=== PATIENT | male | born 1970 | race Caucasian/White ===

== ENCOUNTER 2023-08-29 13:36 | Outpatient (OUT) | payer OTHER, SELFPAY ==
--- NOTE | 2023-08-29 13:59 | XR_ITS ---
[place] [id number] Patient Name: DELL TRAVIS MRN: [id number] date: 1970 Sex: M Assigned Patient Location: RAD Current Patient Location: [facility] Accession/Order Number: [id number] Exam Date: 08/29/2023 14:03 Report Date: 08/29/2023 19:09 At the request of: KIMBERLEY ANDRES Procedure: XR knee RT 3V EXAM: XR knee RT 3V HISTORY: Pain In Right Knee M25.561 COMPARISON: None. TECHNIQUE: 3 views of the right knee were obtained. FINDINGS/IMPRESSION: 1. Enthesopathic changes at the insertion of the patellar tendon. 2. There is no evidence of acute fracture or subluxation. 3. Mild osteoarthritis. Electronically authenticated by: AAKASH NEWSOME Date: 08/29/2023 19:09
== END 2023-08-29 13:37 | disposition home or self-care (01) ==
PROVIDERS: PCP Nurse Practitioner Family; Visit Provider Nurse Practitioner Family
DX: M25.561 Pain in right knee (principal)
CPT/HCPCS: 73562

== ENCOUNTER 2024-01-29 11:01 | Emergency (ER) | payer OTHER, SELFPAY ==
--- OUTSIDE RECORDS SUMMARY | 2024-01-29 11:08 | XMS_ITS | CCD ---
Author Organization [facility] Care Team Providers Care Canteen Manager Name Role Phone SHANDRA RAMOS Attending Unavailable SHANDRA RAMOS Consulting Unavailable SHANDRA RAMOS Admitting Unavailable Shandra Mckinney MD Unavailable SHANDRA MCKINNEY Primary Care Physician Gunnar Concepcion Referring Unavailable Gunnar Concepcion Attending Gunnar Dillon Admitting Unavailable Medications Current Medications Medication Drug Class(es) Dates Sig (Normalized) Sig (Original) diclofenac sodium 75 mg delayed release oral tablet (1 source) Nonsteroidal Anti-inflammatory Drug take 1 tablet by mouth in the morning diclofenac (Voltaren) 75 MG EC tablet Take 75 mg by mouth in the morning and 75 mg before bedtime. 0 Active Problems Problem Classification Problem Date Documented Da te Episodic/Chronic Other screening for suspected conditions (not mental disorders or infectious disease) (1 source) Encounter for screening for malignant neoplasm of prostate; Translations: [ENC SCREEN MALIG NEOPLASM PROSTATE] Onset: 09-24-2020 Episodic Results Test Name Value Interpretation Reference Range Facil ity MRI Knee w/o Contrast Righto n 12-06-2023 MRI Knee w/o Contrast Right Exam Date/Time: 12/05/2023 19:59 EDT Reason for Exam: M23.91 [id number] Report IMPRESSION: Possible changes from prior partial medial meniscectomy, versus tear. Osteoarthritis as discussed. EXAMINATION: MRI Knee w/o Contrast Right HISTORY: Chronic right knee pain. History of previous surgery 10 years ago. Intermittent swelling laterally. No recent injury. TECHNIQUE: Routine non-contrast MRI of the knee RIGHT COMPARISON: None RESULT: MENISCI: Medial Meniscus: Majority of the body appears absent, which may be postsurgical from prior meniscectomy, otherwise represents tear. Lateral Meniscus: Intact LIGAMENTS: ACL, PCL, MCL, and LCL complex intact. CARTILAGE: Small area of full-thickness chondral loss involving the lateral patellar facet superiorly, associated subchondral cystic change. Subchondral edema within the medial compartment suspicious for full-thickness fissuring. Small osteophytes. TENDONS: Distal quadriceps intact. Patellar tendon intact. Popliteus intact. BONES AND MARROW: No evidence of fracture or bone marrow replacing process. MUSCLES: Muscle bulk and signal intensity are normal. JOINT FLUID AND SYNOVIUM: Small to moderate joint effusion. No synovitis. Trace Koenig's cyst. OTHER: Subcutaneous edema/bursitis anteriorly. Ordering Provider: Gunnar Concepcion FINAL REPORT Dictated: 12/06/2023 1:33 pm Xavier Duncan MD Signed (Electronic Signature): 12/06/2023 1:33 pm Signed by: Xavier Duncan MD Transcribed by: REJI Technologist: KAMRON Technical Comments None Normal [facility] Consent for Treatmenton 11-24 Consent for Treatment [id number] #1.00TIFF Normal [facility] RAD - MRI Screening Formon 0 12-05-2023 RAD - MRI Screening Form [id number]#1.00TIFF Normal [facility] Physician Orderon 12-02-2023 Physician Order [id number] #1.00TIFF Normal [facility] INSULINon 09-16-2020 Insulin 11.4 uIU/mL Normal 2.6-24.9 [facility] Comment on above: Performed By: #### I NSULIN #### [facility] [address] [place] [address] Nima Zari CBC AUTO DIFFon 09-15-2020 Basophils (Bld) [#/Vol] 0.1 103/ul Normal 0.0-0.1 [facility] Comment on above: Performed By: #### C BC #### [facility] [address] [place] [address] Nima Zari Basophils/100 WBC (Bld) 0.9 % Normal 0.2-2.0 [facility] Comment on above: Performed By: #### C BC #### [facility] [address] [place] [address] Nima Zari Eosinophils (Bld) [#/Vol] 0.2 103/ul Normal 0.0-0.7 [facility] Comment on above: Performed By: #### C BC #### [facility] [address] [place], [place] [id number] Nima Zari Eosinophils/100 WBC (Bld) 4.1 % Normal 0.9-7.0 [facility] Comment on above: Performed By: #### C BC #### [facility] [address] [place] [address] Nima Zari Erythrocyte distribution width (RBC) [Ratio] 14.2 % Normal 11.0-15.0 [facility] Comment on above: Performed By: #### C BC #### [facility] [address] [place] [address] Nima Zari Hematocrit (Bld) [Volume fraction] 43.9 % Normal 42.0-54.0 [facility] Comment on above: Performed By: #### C BC #### [facility] [address] [place], [place] [id number] Nima Zari Hemoglobin (Bld) [Mass/Vol] 14.1 g/dL Normal 14.0-18.0 [facility] Comment on above: Performed By: #### C BC #### [facility] [address] [place] [address] Nima Zari IG # 0.03 10e3/ul Normal 0.00-0.03 [facility] Comment on above: Performed By: #### C BC #### [facility] [address] [place] [address] Nima Zari IG % 0.5 % Normal 0.0-0.5 [facility] Comment on above: Performed By: #### C BC #### [facility] [address] [place], [place] [id number] Nima Zari Lymphocytes (Bld) [#/Vol] 1.6 103/ul Normal 1.2-3.8 [facility] Comment on above: Performed By: #### C BC #### [facility] [address] [id number] Nima Zari Lymphocytes/100 WBC (Bld) 27.9 % Normal 20.5-60.0 [facility] Comment on above: Performed By: #### C BC #### [facility] [address] [place], [place] [id number] Nimadanae Hameed MANUAL DIFF REQ NO Normal [facility] Comment on above: Performed By: #### C BC #### [facility] [address] [place] [id number] Nima Zari MCH (RBC) [Entitic mass] 30.9 pg Normal 25.9-34.0 [facility] Comment on above: Performed By: #### C BC #### [facility] [address] [place], [place] [id number] Nima Zari MCHC (RBC) [Mass/Vol] 32.1 g/dL Normal 29.9-35.2 [facility] Comment on above: Performed By: #### C BC #### [facility] [address] [place], [place] [id number] Nima Zari MCV (RBC) [Entitic vol] 96.3 fL Critically high 80.0-94.0 [facility] Comment on above: Performed By: #### C BC #### [facility] [address] [place], [place] [address] Nima Zari Monocytes (Bld) [#/Vol] 0.5 103/ul Normal 0.3-0.8 [facility] Comment on above: Performed By: #### C BC #### [facility] [address] [place], [place] [address] Nima Zari Monocytes/100 WBC (Bld) 8.3 % Normal 1.7-12.0 [facility] Comment on above: Performed By: #### C BC #### [facility] [address] [place], [place] [address] Nima Zari Neutrophils (Bld) [#/Vol] 3.4 103/ul Normal 1.4-6.5 [facility] Comment on above: Performed By: #### C BC #### [facility] [address] [place] [address] Nmia Zari Neutrophils/100 WBC (Bld) 58.3 % Normal 43.0-75.0 [facility] Comment on above: Performed By: #### C BC #### [facility] [address] [place], [place] [address] Nima Zari Platelet mean volume (Bld) [Entitic vol] 10.8 fL Normal 9.5-13.5 [facility] Comment on above: Performed By: #### C BC #### [facility] [address] [place], [place] [address] Nima Zari Platelets (Bld) [#/Vol] 245 103/ul Normal 150-450 [facility] Comment on above: Performed By: #### C BC #### [facility] [address] [place], [place] [address] Nima Zari RBC (Bld) [#/Vol] 4.56 106/ul Critically low 4.70-6.10 [facility] Comment on above: Performed By: #### C BC #### [facility] [address] [place], [place] [address] Nima Zari WBC (Bld) [#/Vol] 5.9 103/ul Normal 4.0-11.0 [facility] Comment on above: Performed By: #### C BC #### [facility] [address] [place], [place] [address] Nimadanae Hameed GLYCOHEMOGLOBIN A1Con 2019 Glucose [Mass/Vol] 117 mg/dL Normal [facility] Comment on above: Performed By: #### A 1C #### [facility] [address] [place], [place] [address] Nima Zari HbA1c (Bld) [Mass fraction] 5.7 % Normal <=6.0 [facility] Comment on above: Performed By: #### A 1C #### [facility] [address] [place], [place] [address] Nimadanae Hameed LIPID PROFILEon 09-15-2020 CHOL-HDL RATIO NORM SEE BELOW Normal [facility] Comment on above: Result Comment: 3.3 - 4.4 LOW RISK 4.4 - 7.1 AVERAGE RISK 7.1 - 11.0 MODERATE RISK >11.0 HIGH RISK Performed By: #### C MP, PSASC, LIPID #### [facility] [address] [place] [id number] Nima Zari Cholesterol [Mass/Vol] 157 mg/dL Normal <=200 [facility] Comment on above: Performed By: #### C MP, PSASC, LIPID #### [facility] [address] [place] [id number] Nima Zari Cholesterol in HDL [Mass/Vol] > or = 60 mg/dl - LOW CARDIOVASCULAR RISK <40 mg/dl - HIGH CARDIOVASCULAR RISK Normal [facility] Comment on above: Performed By: #### C MP, PSASC, LIPID #### [facility] [address] [phone] Nima Zari Cholesterol in HDL [Mass/Vol] 56 mg/dL Normal [facility] Comment on above: Performed By: #### C MP, PSASC, LIPID #### [facility] [address] [place] [address] Nima Zari Cholesterol in LDL [Mass/Vol] 96.6 mg/dL Normal [facility] Comment on above: Performed By: #### C MP, PSASC, LIPID #### [facility] [address] [place], [place] [address] Nima Zari Cholesterol in LDL [Mass/Vol] SEE BELOW Normal [facility] Comment on above: Result Comment: <100 mg/dl OPTIMAL 100 - 129 mg/dl NEAR OR ABOVE OPTIMAL 130 - 159 mg/dl BORDERLINE HIGH 160 - 189 mg/dl HIGH >190 mg/dl VERY HIGH Performed By: #### C MP, PSASC, LIPID #### [facility] [address] [place], [place] [address] Nima Zari Cholesterol.total/Cho lesterol in HDL [Mass ratio] 2.8 {ratio} Normal [facility] Comment on above: Performed By: #### C MP, PSASC, LIPID #### [facility] [address] [place] [phone] Nima Zari Triglyceride [Mass/Vol] 22 mg/dL Normal <=150 [facility] Comment on above: Performed By: #### C MP, PSASC, LIPID #### [facility] [address] [place] [phone] Nima Zari VLDL CALC 4.4 mg/dL Normal [facility] Comment on above: Performed By: #### C MP, PSASC, LIPID #### [facility] [address] [place] [phone] Nimadanae Tinsleyen PROF 14(COMP METB)on 020 Albumin [Mass/Vol] 3.6 g/dL Normal 3.5-5.0 [facility] Comment on above: Performed By: #### C MP, PSASC, LIPID #### [facility] [address] [place] [phone] Nima Zari Albumin/Globulin [Mass ratio] 1.2 {ratio} Normal [facility] Comment on above: Performed By: #### C MP, PSASC, LIPID #### [facility] [address] [place] [phone] Nima Zari ALP [Catalytic activity/Vol] 43 U/L Normal 38-126 [facility] Comment on above: Performed By: #### C MP, PSASC, LIPID #### [facility] [address] [place], [place] [address] Nima Zari ALT [Catalytic activity/Vol] 30 U/L Normal 21-72 [facility] Comment on above: Performed By: #### C MP, PSASC, LIPID #### [facility] [address] [place] [phone] Nima Zari Anion gap [Moles/Vol] 11.1 mmol/L Normal [facility] Comment on above: Performed By: #### C MP, PSASC, LIPID #### [facility] [address] [place] [phone] Nima Zari AST [Catalytic activity/Vol] 19 U/L Normal 17-59 [facility] Comment on above: Performed By: #### C MP, PSASC, LIPID #### [facility] [address] [place] [address] Nima Zari Bilirubin Ql (U) 0.4 mg/dL Normal 0.2-1.3 [facility] Comment on above: Performed By: #### C MP, PSASC, LIPID #### [facility] [address] [place] [address] Nima Zari Calcium [Mass/Vol] 8.4 mg/dL Normal 8.4-10.2 [facility] Comment on above: Performed By: #### C MP, PSASC, LIPID #### [facility] [address] [place] [address] Nima Zari Chloride [Moles/Vol] 110 mmol/L Critically high 98-107 [facility] Comment on above: Performed By: #### C MP, PSASC, LIPID #### [facility] [address] [place] [address] Nima Zari CO2 [Moles/Vol] 25.5 mmol/L Normal 22.0-30.0 [facility] Comment on above: Performed By: #### C MP, PSASC, LIPID #### [facility] [address] [place] [address] Nima Zari Creatinine [Mass/Vol] 1.19 mg/dL Normal 0.66-1.25 [facility] Comment on above: Performed By: #### C MP, PSASC, LIPID #### [facility] [address] [place] [address] Nima Zari EGFR-AF CYPRIOT >60 Normal >=60 [facility] Comment on above: Performed By: #### C MP, PSASC, LIPID #### [facility] [address] [place] [address] Nima Zari EGFR-NON AF CYPRIOT >60 Normal >=60 [facility] Comment on above: Performed By: #### C MP, PSASC, LIPID #### [facility] [address] [place] [address] Nima Zari Globulin (S) [Mass/Vol] 2.9 g/dL Normal [facility] Comment on above: Performed By: #### C MP, PSASC, LIPID #### [facility] [address] [place] [address] Nima Zari Glucose [Mass/Vol] 118 mg/dL Critically high 74-106 T [facility] Comment on above: Performed By: #### C MP, PSASC, LIPID #### [facility] [address] [place] [address] Nima Azri Potassium [Moles/Vol] 4.6 mmol/L Normal 3.4-5.0 [facility] Comment on above: Performed By: #### C MP, PSASC, LIPID #### [facility] [address] [place] [address] Nima Zari Protein [Mass/Vol] 6.5 g/dL Normal 6.1-8.2 [facility] Comment on above: Performed By: #### C MP, PSASC, LIPID #### [facility] [address] [place] [address] Nima Zari Sodium [Moles/Vol] 142 mmol/L Normal 137-145 [facility] Comment on above: Performed By: #### C MP, PSASC, LIPID #### [facility] [address] [place] [address] Nima Zari Urea nitrogen [Mass/Vol] 12.0 mg/dL Normal 9.0-20.0 [facility] Comment on above: Performed By: #### C MP, PSASC, LIPID #### [facility] [address] [place] [address] Nima Zari Urea nitrogen/Creatinine [Mass ratio] 10.1 mg/mg Normal [facility] Comment on above: Performed By: #### C MP, PSASC, LIPID #### [facility] [address] [place], [place] [address] Nima Zari Encounters Encounter Date Encounter Type Care Provider Facility Start: 12-05-2023 End: 12-06-2023 ambulatory Gunnar Concepcion Facility:[facility] Start: 12-05-2023 End: 12-05-2023 Patient encounter procedure Gunnar Concepcion [facility] Start: 11-07-2023 Bamboo flowsheet Shandra main PT Work Phone: [facility] Start: 11-07-2023 Bamboo flowsheet Shandra main PT Work Phone: [facility] Start: 09-24-2020 Encounter for genera l adult medical examination without abnormal findings SHANDRA RAMOS [facility] Start: 09-15-2020 End: 09-16-2020 Patient encounter procedure SHANDRA RAMOS Facility:[facility] Encounter for genera l adult medical examination without abnormal findings SHANDRA RAMOS [facility] Procedures Date Procedure Procedure Detail Performing Clinician Start: 09-15-2020 [object Object] SHANDRA RAMOS Comment on above: Performed By: #### C MP, PSASC, LIPID #### [facility] [address] [address] Nima Hameed Plan of Treatment Date Care Activity Detail Author Start: 11-07-2023 End: 11-07-2023 ambulatory 11/07/2023 3:30 PM EST Evaluation [facility] [address] [place] [id number] Shandra Liu, PT [address] [place] [address] Internal derangement of right knee; Right knee pain, unspecified chronicity [facility] Comment on above: Internal derangement of right knee; Right knee pain, unspecified chronicity Payers Date Payer Category Payer Medicaid [employer] [place] [employer] [id number] 2017-Present [address] [place] [address] [id number] 1970 Unknown [id number] 1970 Unknown [id number] 1959 Unknown [id number] Social History Date Type Detail Facility Start: 10-10-2023 Tobacco smoking stat [facility] Never smoked tobacco [facility] Start: 10-10-2023 Tobacco use and exposure Smokeless tobacco non-user [facility] Start: 10-10-2023 Alcohol intake Current drinke r of alcohol (finding) [facility] Start: 10-10-2023 Alcohol intake [facility] Start: 10-10-2023 Tobacco use panel [facility] Start: 1970 Sex Assigned At Not on file [facility] Tobacco smoking status No Smokin g Status Entered [facility] Evaluation + Plan note Note Date & Type Note Facility Evaluation + Plan note No data available for this section [facility] Hospital Discharge instructions Note Date & Type Note Facility Hospital Discharge instructions No data available for this section [facility] Progress note Note Date & Type Note Facility Progress note No data available for this section [facility] Summary Purpose Family History No Family History Records Found No data available for this section No Family History Records Found Advance Directives No Advanced Directives Records FoundNo Advanced Directives Records Found Additional Source Comments (unrecognized sect ion and content) No Status Records FoundNo Status Records Found INFORMATION SOURCE (unrecogn ized section and content) DATE CREATED AUTHOR 09/25/2020 [facility] DATE CREATED AUTHOR AUTHOR'S ORGANIZ ATION 12/06/2023 [facility] Care Teams (unrecognized sec tion and content) Canteen Manager Relationship Specialty Start Date End Date Shandra Mckinney MD [address] [place] [id number] Referring Physician Family Medicine 10/10/23 FOR RECORDS PERTAINING TO PATIENTS WHO ARE OR HAVE BEEN ENROLLED IN A CHEMICAL DEPENDENCY/SUBSTANCEABUSE PROGRAM, SOME INFORMATION MAY BE OMITTED. This clinical summary was aggregated from multiple sources. Caution should be exercised in using it in the provision of clinical care. This summary normalizes information from multiple sources, and as a consequence, information in this document may materially change the coding, format and clinical context of patient data. In addition, data may be omitted in some cases. CLINICAL DECISIONS SHOULD BE BASED ON THE PRIMARY CLINICAL RECORDS. [facility]. provides no warranty or guarantee of the accuracy or completeness of information in this document.
[2024-01-29 11:18] VITALS: BP 122/84; PULSE 73; TEMP 36.8; O2SAT 97; BMI 36.3
--- NOTE | 2024-01-29 11:31 | XR_ITS ---
The [address] [address] Patient Name: DELL TRAVIS MRN: [id number] date: 1970 Sex: M Assigned Patient Location: ER Current Patient Location: ER Accession/Order Number: [id number] Exam Date: 01/29/2024 11:47 Report Date: 01/29/2024 12:08 At the request of: JEFF MARINELLI Procedure: XR chest 2V EXAM: Chest x-ray HISTORY: . cough . COMPARISON: None. TECHNIQUE: Frontal and lateral chest FINDINGS: Heart and vascularity are unremarkable. Lungs are free of focal infiltrates. Spondylosis of the spine is noted. XR/XR chest 2V IMPRESSION: No acute heart or lung disease identified. Electronically authenticated by: LEROY ULRICH Date: 01/29/2024 12:08
--- NOTE | 2024-01-29 12:23 | ED_ITS ---
HPI - URI/Sore Throat General Chief Complaint: Upper Respiratory Infection Stated Complaint: COUGHING UP BLOOD Time Seen by Provider: 01/29/24 12:13 Source: patient Limitations: no limitations History of Present Illness HPI Narrative: 53-year-old male presents to the emergency department for coughing up some blood. He has had a cough for several days, perhaps a week. He has been coughing up small streaks of blood. Family encouraged him to come in to get checked. No fever or massive hemoptysis. He does not complain of chest pain. He is a non-smoker, never smoked. Related Data Home Medications ?Medication ?Instructions ?Recorded ?Confirmed aspirin 325 mg tablet,delayed 325 mg PO DAILY 01/29/24 01/29/24 release Previous Rx's ?Medication ?Instructions ?Recorded azithromycin 250 mg tablet See Rx Instructions PO .COMPLEX #6 01/29/24 (Zithromax Z-Thuan) tabs benzonatate 100 mg capsule 100 mg PO TID PRN cough #20 caps 01/29/24 Allergies Allergy/AdvReac Type Severity Reaction Status Date / Time No Known Drug Allergies Allergy Verified 01/29/24 11:17 Review of Systems ROS Narrative A ten point review of systems is negative except as noted above. Exam Narrative Exam Narrative: Nurses note and vital signs reviewed and patient is not hypoxic. General: The patient appears well and in no apparent distress. Patient is resting comfortably on cart. Skin: Warm, dry, no pallor noted. There is no rash noted. Head: Normocephalic, atraumatic Eye: Normal conjunctiva, no drainage Ears, Nose, Mouth, and Throat: oral mucosa is moist. Nares patent. Cardiovascular: Regular Rate and Rhythm Respiratory: Patient is in no distress, no accessory muscle use, lungs are sharda r to auscultation, no wheezing, rales or rhonchi Back: non-tender, no CVA tenderness bilaterally to percussion. GI: Normal bowel sounds, no tenderness to palpation, no masses appreciated. No rebound, guarding, or rigidity noted. Musculoskeletal: No peripheral edema Neurological: A&O, normal speech Psychiatric: Cooperative Constitutional Vital Signs, click to edit/add: Last Vital Signs Temp 98.2 F 01/29/24 11:18 Pulse 73 01/29/24 11:18 Resp 18 01/29/24 11:18 BP 122/84 01/29/24 11:18 Pulse Ox 97 01/29/24 11:18 O2 Del Method Room Air 01/29/24 11:18 Course Vital Signs Vital signs: Vital Signs Temperature 98.2 F 01/29/24 11:18 Pulse Rate 73 01/29/24 11:18 Respiratory Rate 18 01/29/24 11:18 Blood Pressure 122/84 01/29/24 11:18 Pulse Oximetry 97 01/29/24 11:18 Oxygen Delivery Method Room Air 01/29/24 11:18 Temperature 98.2 F 01/29/24 11:18 Pulse Rate 73 01/29/24 11:18 Respiratory Rate 18 01/29/24 11:18 Blood Pressure 122/84 01/29/24 11:18 Pulse Oximetry 97 01/29/24 11:18 Oxygen Delivery Method Room Air 01/29/24 11:18 MDM - URI/Sore Throat MDM Narrative Medical decision making narrative: Chest x-ray is negative and he is prescribed Tessalon and Zithromax. Treatment diagnosis and follow-up were discussed with the patient. Differential Diagnosis Differential diagnosis: Likely upper respiratory infection and other (Lung mass, bronchitis, pneumonia) Imaging Data Chest x-ray: Radiologist's impression: ITS Impressions Chest X-Ray 01/29/24 11:31 IMPRESSION: No acute heart or lung disease identified. Electronically authenticated by: LEROY ULRICH Date: 01/29/2024 12:08 Discharge Plan Discharge Stand Alone Forms: Portal Instructions Chief Complaint: Upper Respiratory Infection Clinical Impression: Hemoptysis Patient Disposition: Home, Self-Care Time of Disposition Decision: 12:19 Condition: Good Mode of Transportation: Private Vehicle Prescriptions / Home Meds: New azithromycin [Zithromax Z-Thuan] 250 mg tablet See Rx Instructions .ROUTE .COMPLEX Qty: 6 0RF Rx Instructions: For 250 mg dose pack: take 500 mg today (day 1), then 250 mg for 4 days (days 2-5) benzonatate 100 mg capsule 100 mg PO TID PRN (Reason: cough) Qty: 20 0RF No Action aspirin 325 mg tablet,delayed release (DR/EC) 325 mg PO DAILY Print Language: Greek Instructions: Coughing Up Blood (Hemoptysis) (ED) Referrals: KIMBERLEY ANDRES [Primary Care Provider] - 1 week
== END 2024-01-29 12:29 | disposition home or self-care (01) ==
PROVIDERS: Emergency Provider Emergency Medicine; PCP Nurse Practitioner Family
DX: R04.2 Hemoptysis (principal); Z79.82 Long term (current) use of aspirin
CPT/HCPCS: 71046; 99283

== ENCOUNTER 2024-09-17 09:33 | Outpatient (OUT) | payer OTHER, SELFPAY ==
[2024-09-17 09:51] LABS: Basophils Absolute Auto 0.1 10^3/uL (0.0-0.1); Basophils Percent Auto 1.1 % (0.2-2.0); Eosinophils Absolute Auto 0.2 10^3/uL (0.0-0.7); Eosinophils Percent Auto 3.8 % (0.9-7.0); Hematocrit 46.3 % (42.0-54.0); Hemoglobin 14.7 g/dL (14.0-18.0); Immature Granulocytes Abs Auto 0.02 10^3/uL (0.00-0.03); Immature Granulocytes Pct Auto 0.3 % (0.0-0.5); Lymphocytes Absolute Auto 1.8 10^3/uL (1.2-3.8); Lymphocytes Percent Auto 27.3 % (20.5-60.0); Mean Corpuscular HGB Conc 31.7 g/dL (29.9-35.2); Mean Corpuscular Hemoglobin 30.8 pg (25.9-34.0); Mean Corpuscular Volume 97.1 fL (80.0-94.0); Mean Platelet Volume 10.6 fL (9.5-13.5); Monocytes Absolute Auto 0.5 10^3/uL (0.3-0.8); Monocytes Percent Auto 7.8 % (1.7-12.0); Neutrophils Absolute Auto 3.8 10^3/uL (1.4-6.5); Neutrophils Percent Auto 59.7 % (43.0-75.0); Platelet Count 274 10^3/uL (150-450); Red Blood Count 4.77 10^6/uL (4.70-6.10); White Blood Count 6.4 10^3/uL (4.0-11.0)
[2024-09-17 10:01] LABS: Estimated Average Glucose 117 mg/dL; Glycohemoglobin A1C 5.7 % (4.5-6.2)
[2024-09-17 10:30] LABS: Prostate Specific Antigen Scrn 0.15 ng/mL (<=4.00)
[2024-09-17 10:32] LABS: Alanine Aminotransferase 27 U/L (16-63); Albumin Globulin Ratio 1.2; Albumin Level 3.8 g/dL (3.4-5.0); Alkaline Phosphatase 66 U/L (46-116); Aspartate Amino Transferase 15 U/L (15-37); BUN Creatinine Ratio 8.5; Bilirubin Total 0.4 mg/dL (0.2-1.0); Carbon Dioxide 28.6 mmol/L (21.0-32.0); Chloride 106 mmol/L (98-107); Chol HDL Ratio 2.7; Cholesterol 175 mg/dL (<=200); Estimated GFR (African America >60 (>=60 mL/min/1.73m^2); Estimated GFR (Non-African Ame 58 (>=60 mL/min/1.73m^2); Free T3 2.67 pg/mL (2.18-3.98); Globulin 3.3 g/dL; Glucose 117 mg/dL (74-106); HDL Cholesterol 66 mg/dL (40-60); Potassium 4.6 mmol/L (3.5-5.1); Sodium 143 mmol/L (136-145); Thyroid Stimulating Hormone 1.469 uIU/mL (0.358-3.740); Total Protein 7.1 g/dL (6.4-8.2); Triglycerides 48 mg/dL (<=150); Uric Acid 5.6 mg/dL (3.5-7.2); VLDL CHOLESTEROL 9.6 mg/dL
[2024-09-18 07:09] LABS: Insulin 15.3 uIU/mL (2.6-24.9)
== END 2024-09-17 09:34 | disposition home or self-care (01) ==
PROVIDERS: PCP Nurse Practitioner Family; Visit Provider Nurse Practitioner Family
DX: Z00.00 Encounter for general adult medical examination without abnormal findings (principal)
CPT/HCPCS: 36415; 80053; 80061; 83036; 83525; 84436; 84443; 84481; 84550; 85025; G0103

== ENCOUNTER 2025-05-28 06:51 | Outpatient (OUT) | payer OTHER, SELFPAY ==
--- NOTE | 2025-05-28 | US_ITS ---
The [address] [address] Patient Name: DELL TRAVIS MRN: [id number] date: 1970 Sex: M Assigned Patient Location: US Current Patient Location: US Accession/Order Number: [id number] Exam Date: 05/28/2025 07:08 Report Date: 05/28/2025 09:24 At the request of: KIMBERLEY ANDRES Procedure: US right upper quadrant LIMITED RIGHT UPPER QUADRANT ABDOMINAL ULTRASOUND CLINICAL HISTORY: R10.11 Right upper quadrant abdominal pain COMPARISON: None The gallbladder is physiologically distended. There is a large stone toward the gallbladder neck measuring over 3 cm in size. No wall thickening or pericholecystic fluid is noted. No intra- or extrahepatic biliary dilatation is evident. The common duct measures 3 - 4 mm. The liver is slightly echogenic with respect to the right kidney and fatty infiltration is not completely excluded. No intrahepatic masses are seen. There is appropriate hepatopetal flow within the main portal vein. The visualized portions of the pancreas show no significant sonographic abnormality. Cursory evaluation of the right kidney reveals no hydronephrosis or fluid within Suarez's pouch. US/US right upper quadrant IMPRESSION: CHOLELITHIASIS. POSSIBLE FATTY LIVER. Impression dictated by: Zari Morton M.D. 05/28/2025 9:24 AM Dictation Location: [place] [address] Electronically authenticated by: [id number] Y Date: 05/28/2025 09:24
--- OUTSIDE RECORDS SUMMARY | 2025-05-28 06:54 | XMS_ITS | CCD ---
Author Organization [facility] Care Team Providers Care Tool Coordinator Name Role Phone SHANDRA RAMOS Attending Unavailable SHANDRA RAMOS Consulting Unavailable SHANDRA RAMOS Admitting Unavailable Shandra Mckinney MD Unavailable SHANDRA MCKINNEY Primary Care Physician Gunnar Concepcion Referring Unavailable Gunnar Concepcion Attending Unavailable Gunnar Concepcion Admitting Unavailable Medications Current Medications Medication Drug [...] REJI Technologist: KAMRON Technical Comments None Normal [facility] Consent for Treatmenton 11-24 Consent for Treatment [id number] #1.00TIFF Normal [facility] RAD - MRI Screening Formon 0 12-05-2023 RAD - MRI Screening Form [id number]#1.00TIFF Normal [facility] Physician Orderon 12-02-2023 Physician Order [id number] #1.00TIFF Normal [facility] INSULINon 09-16-2020 Insulin 11.4 uIU/mL Normal 2.6-24.9 [facility] Comment on above: Performed By: #### I NSULIN #### [facility] [address] [place] [address] Nima Zari CBC AUTO DIFFon 09-15-2020 Basophils (Bld) [#/Vol] 0.1 103/ul Normal 0.0-0.1 [facility] Comment on above: Performed By: #### C BC #### [facility] [address] [place] [address] Nima Zari Basophils/100 WBC (Bld) 0.9 % Normal 0.2-2.0 [facility] Comment on above: Performed By: #### C BC #### [facility] [address] [id number] Nima Zari Eosinophils (Bld) [#/Vol] 0.2 103/ul Normal 0.0-0.7 [facility] Comment on above: Performed By: #### C BC #### [facility] [address] [place], [place] [id number] Nima Zari Eosinophils/100 WBC (Bld) 4.1 % Normal 0.9-7.0 [facility] Comment on above: Performed By: #### C BC #### [facility] [address] [place], [place] [id number] Nima Zari Erythrocyte distribution width (RBC) [Ratio] 14.2 % Normal 11.0-15.0 [facility] Comment on above: Performed By: #### C BC #### [facility] [address] [place] [address] Nima Zari Hematocrit (Bld) [Volume fraction] 43.9 % Normal 42.0-54.0 [facility] Comment on above: Performed By: #### C BC #### [facility] [address] [place], [place] [id number] Nima Zari Hemoglobin (Bld) [Mass/Vol] 14.1 g/dL Normal 14.0-18.0 [facility] Comment on above: Performed By: #### C BC #### [facility] [address] [place], [place] [address] Nima Zari IG # 0.03 10e3/ul Normal 0.00-0.03 [facility] Comment on above: Performed By: #### C BC #### [facility] [address] [place], [place] [address] Nima Zari IG % 0.5 % Normal 0.0-0.5 [facility] Comment on above: Performed By: #### C BC #### [facility] [address] [place], [place] [id number] Nima Zari Lymphocytes (Bld) [#/Vol] 1.6 103/ul Normal 1.2-3.8 [facility] Comment on above: Performed By: #### C BC #### [facility] [address] [id number] Nima Zari Lymphocytes/100 WBC (Bld) 27.9 % Normal 20.5-60.0 [facility] Comment on above: Performed By: #### C BC #### [facility] [address] [id number] Nima Zari MANUAL DIFF REQ NO Normal [facility] Comment on above: Performed By: #### C BC #### [facility] [address] [id number] Nima Zari MCH (RBC) [Entitic mass] 30.9 pg Normal 25.9-34.0 [facility] Comment on above: Performed By: #### C BC #### [facility] [address] [place], [place] [id number] Nima Zari MCHC (RBC) [Mass/Vol] 32.1 g/dL Normal 29.9-35.2 [facility] Comment on above: Performed By: #### C BC #### [facility] [address] [place], [place] [address] Nima Zari MCV (RBC) [Entitic vol] 96.3 fL Critically high 80.0-94.0 [facility] Comment on above: Performed By: #### C BC #### [facility] [address] [place], [place] [id number] Nima Zari Monocytes (Bld) [#/Vol] 0.5 103/ul Normal 0.3-0.8 [facility] Comment on above: Performed By: #### C BC #### [facility] [address] [place], [place] [address] Nima Zari Monocytes/100 WBC (Bld) 8.3 % Normal 1.7-12.0 [facility] Comment on above: Performed By: #### C BC #### [facility] [address] [place], [place] [id number] Nima Zari Neutrophils (Bld) [#/Vol] 3.4 103/ul Normal 1.4-6.5 [facility] Comment on above: Performed By: #### C BC #### [facility] [address] [place], [place] [address] Nima Zari Neutrophils/100 WBC (Bld) 58.3 % Normal 43.0-75.0 [facility] Comment on above: Performed By: #### C BC #### [facility] [address] [place], [place] [address] Nima Zari Platelet mean volume (Bld) [Entitic vol] 10.8 fL Normal 9.5-13.5 [facility] Comment on above: Performed By: #### C BC #### [facility] [address] [place], [place] [address] Nima Zari Platelets (Bld) [#/Vol] 245 103/ul Normal 150-450 [facility] Comment on above: Performed By: #### C BC #### [facility] [address] [place], [place] [address] Nima Zari RBC (Bld) [#/Vol] 4.56 106/ul Critically low 4.70-6.10 [facility] Comment on above: Performed By: #### C BC #### [facility] [address] [place], [place] [address] Nima Azri WBC (Bld) [#/Vol] 5.9 103/ul Normal 4.0-11.0 [facility] Comment on above: Performed By: #### C BC #### [facility] [address] [place], [place] [address] Nima Zari GLYCOHEMOGLOBIN A1Con 2019 Glucose [Mass/Vol] 117 mg/dL Normal [facility] Comment on above: Performed By: #### A 1C #### [facility] [address] [place], [place] [address] Nima Zari HbA1c (Bld) [Mass fraction] 5.7 % Normal <=6.0 [facility] Comment on above: Performed By: #### A 1C #### [facility] [address] [place], [place] [address] Nima Zari LIPID PROFILEon 09-15-2020 CHOL-HDL RATIO NORM SEE BELOW Normal [facility] Comment on above: Result Comment: 3.3 - 4.4 LOW RISK 4.4 - 7.1 AVERAGE RISK 7.1 - 11.0 MODERATE RISK >11.0 HIGH RISK Performed By: #### C MP PSASC, LIPID #### [facility] [address] [place], [place] [address] Nima Zari Cholesterol [Mass/Vol] 157 mg/dL Normal <=200 [facility] Comment on above: Performed By: #### C MP, PSASC, LIPID #### [facility] [address] [place], [place] [address] Nima Zari Cholesterol in HDL [Mass/Vol] > or = 60 mg/dl - LOW CARDIOVASCULAR RISK <40 mg/dl - HIGH CARDIOVASCULAR RISK Normal [facility] Comment on above: Performed By: #### C MP, PSASC, LIPID #### [facility] [address] [place], [place] [address] Nima Zari Cholesterol in HDL [Mass/Vol] 56 mg/dL Normal [facility] Comment on above: Performed By: #### C MP, PSASC, LIPID #### [facility] [address] [place], [place] [address] Nima Zari Cholesterol in LDL [Mass/Vol] 96.6 mg/dL Normal [facility] Comment on above: Performed By: #### C MP PSASC, LIPID #### [facility] [address] [place], [place] [address] Nima Zari Cholesterol in LDL [Mass/Vol] SEE BELOW Normal [facility] Comment on above: Result Comment: <100 mg/dl OPTIMAL 100 - 129 mg/dl NEAR OR ABOVE OPTIMAL 130 - 159 mg/dl BORDERLINE HIGH 160 - 189 mg/dl HIGH >190 mg/dl VERY HIGH Performed By: #### C MP, PSASC, LIPID #### [facility] [address] [place], [place] [address] Nima Zari Cholesterol.total/Cho lesterol in HDL [Mass ratio] 2.8 {ratio} Normal [facility] Comment on above: Performed By: #### C MP, PSASC, LIPID #### [facility] [address] [place], [place] [address] Nima Zari Triglyceride [Mass/Vol] 22 mg/dL Normal <=150 [facility] Comment on above: Performed By: #### C MP, PSASC, LIPID #### [facility] [address] [id number] Nima Zari VLDL CALC 4.4 mg/dL Normal [facility] Comment on above: Performed By: #### C MP, PSASC, LIPID #### [facility] [address] [id number] Nima Zari PROF 14(COMP METB)on 020 Albumin [Mass/Vol] 3.6 g/dL Normal 3.5-5.0 [facility] Comment on above: Performed By: #### C MP, PSASC, LIPID #### [facility] [address] [place] [address] Nima Zari Albumin/Globulin [Mass ratio] 1.2 {ratio} Normal [facility] Comment on above: Performed By: #### C MP, PSASC, LIPID #### [facility] [address] [place] [address] Nima Zari ALP [Catalytic activity/Vol] 43 U/L Normal 38-126 [facility] Comment on above: Performed By: #### C MP, PSASC, LIPID #### [facility] [address] [place] [address] Nima Zari ALT [Catalytic activity/Vol] 30 U/L Normal 21-72 [facility] Comment on above: Performed By: #### C MP, PSASC, LIPID #### [facility] [address] [id number] Nima Zari Anion gap [Moles/Vol] 11.1 mmol/L Normal [facility] Comment on above: Performed By: #### C MP, PSASC, LIPID #### [facility] [address] [place] [address] Nima Zari AST [Catalytic activity/Vol] 19 U/L Normal 17-59 [facility] Comment on above: Performed By: #### C MP, PSASC, LIPID #### [facility] [address] [place], [place] [address] Nima Zari Bilirubin Ql (U) 0.4 mg/dL Normal 0.2-1.3 [facility] Comment on above: Performed By: #### C MP, PSASC, LIPID #### [facility] [address] [place] [address] Nima Zari Calcium [Mass/Vol] 8.4 mg/dL Normal 8.4-10.2 [facility] Comment on above: Performed By: #### C MP, PSASC, LIPID #### [facility] [address] [place] [address] Nima Zari Chloride [Moles/Vol] 110 mmol/L Critically high 98-107 [facility] Comment on above: Performed By: #### C MP, PSASC, LIPID #### [facility] [address] [place] [address] Nima Zari CO2 [Moles/Vol] 25.5 mmol/L Normal 22.0-30.0 [facility] Comment on above: Performed By: #### C MP, PSASC, LIPID #### [facility] [address] [place] [address] Nima Zari Creatinine [Mass/Vol] 1.19 mg/dL Normal 0.66-1.25 [facility] Comment on above: Performed By: #### C MP, PSASC, LIPID #### [facility] [address] [place] [address] Nima Zari EGFR-AF DUTCH >60 Normal >=60 [facility] Comment on above: Performed By: #### C MP, PSASC, LIPID #### [facility] [address] [place] [address] Nima Zari EGFR-NON AF DUTCH >60 Normal >=60 [facility] Comment on above: Performed By: #### C MP, PSASC, LIPID #### [facility] [address] [place] [address] Nima Zari Globulin (S) [Mass/Vol] 2.9 g/dL Normal [facility] Comment on above: Performed By: #### C MP, PSASC, LIPID #### [facility] [address] [place] [address] Nima Zari Glucose [Mass/Vol] 118 mg/dL Critically high 74-106 [facility] Comment on above: Performed By: #### C MP, PSASC, LIPID #### [facility] [address] [address] Nima Zari Potassium [Moles/Vol] 4.6 mmol/L Normal 3.4-5.0 [facility] Comment on above: Performed By: #### C MP, PSASC, LIPID #### [facility] [address] [address] Nima Zari Protein [Mass/Vol] 6.5 g/dL Normal 6.1-8.2 [facility] Comment on above: Performed By: #### C MP, PSASC, LIPID #### [facility] [address] [address] Nima Zari Sodium [Moles/Vol] 142 mmol/L Normal 137-145 [facility] Comment on above: Performed By: #### C MP, PSASC, LIPID #### [facility] [address] [place] [address] Nima Zari Urea nitrogen [Mass/Vol] 12.0 mg/dL Normal 9.0-20.0 [facility] Comment on above: Performed By: #### C MP, PSASC, LIPID #### [facility] [address] [address] Nima Zari Urea nitrogen/Creatinine [Mass ratio] 10.1 mg/mg Normal [facility] Comment on above: Performed By: #### C MP, PSASC, LIPID #### [facility] [address] [place], [place] [address] Nima Zari Encounters Encounter Date Encounter Type Care Provider Facility Start: 12-05-2023 End: 12-06-2023 ambulatory Gunnar Concepcion Facility:[facility] Start: 12-05-2023 End: 12-05-2023 Patient encounter procedure Gunnar Concepcion [facility] Start: 11-07-2023 [place] flowsheet Shandra main PT Work Phone: [facility] Start: 11-07-2023 [place] flowsheet Shandra main PT Work Phone: [facility] Start: 09-24-2020 Encounter for genera l adult medical examination without abnormal findings SHANDRA RAMOS [facility] Start: 09-15-2020 End: 09-16-2020 Patient encounter procedure SHANDRA RAMOS Facility:[facility] Encounter for genera l adult medical examination without abnormal findings SHANDRA RAMOS [facility] Procedures Date Procedure Procedure Detail Performing Clinician Start: 09-15-2020 [object Object] SHANDRA RAMOS Comment on above: Performed By: #### C MP, PSASC, LIPID #### [facility] [address] [address] Nima Zari Plan of Treatment Date Care Activity Detail Author Start: 11-07-2023 End: 11-07-2023 ambulatory 11/07/2023 3:30 PM EST Evaluation [facility] [address] [place] [id number] Shandra Liu, PT [address] [place] [address] Internal derangement of right knee; Right knee pain, unspecified chronicity [facility] Comment on above: Internal derangement of right knee; Right knee pain, unspecified chronicity Payers Date Payer Category Payer Medicaid [employer] [place] [employer] [id number] 2017-Present [address] [place] [address] [id number] 1970 Unknown [id number] 1970 Unknown [id number] 1959 Unknown [id number] Social History Date Type Detail Facility Start: 10-10-2023 Tobacco smoking stat us NHIS Never smoked tobacco [facility] Start: 10-10-2023 Tobacco use and exposure Smokeless tobacco non-user [facility] Start: 10-10-2023 Alcohol intake Current drinke r of alcohol (finding) [facility] Start: 10-10-2023 Alcohol intake [facility] Start: 10-10-2023 Tobacco use panel [facility] Start: 1970 Sex Assigned At Not on file [facility] Tobacco smoking status No Smokin g Status Entered [facility] Evaluation + Plan note Note Date & Type Note Facility Evaluation + Plan note No data available for this section [facility] Hospital Discharge instructions Note Date & Type Note Facility Hospital Discharge instructions No data available for this section [facility] Progress note Note Date & Type Note Facility Progress note No data available for this section [facility] Summary Purpose Family History No Family History Records Found No data available for this section No Family History Records Found Advance Directives No Advanced Directives Records FoundNo Advanced Directives Records Found Additional Source Comments (unrecognized sect ion and content) No Status Records FoundNo Status Records Found INFORMATION SOURCE (unrecogn ized section and content) DATE CREATED AUTHOR 09/25/2020 [facility] DATE CREATED AUTHOR AUTHOR'S ORGANIZ ATION 12/06/2023 [facility] Care Teams (unrecognized sec tion and content) Tool Coordinator Relationship Specialty Start Date End Date Shandra Mckinney MD [address] [place] [id number] Referring Physician Family Medicine 10/10/23 FOR RECORDS [...] BE BASED ON THE PRIMARY CLINICAL RECORDS. [facility] [employer] [facility]. provides no warranty or guarantee of the accuracy or completeness of information in this document.
== END 2025-05-28 06:52 | disposition home or self-care (01) ==
LOC: US 06:51
PROVIDERS: PCP Nurse Practitioner Family; Visit Provider Nurse Practitioner Family
DX: R10.11 Right upper quadrant pain (principal)
CPT/HCPCS: 76705

== ENCOUNTER 2025-07-08 08:40 | Outpatient (OUT) | payer OTHER, SELFPAY ==
--- OUTSIDE RECORDS SUMMARY | 2025-07-08 08:44 | XMS_ITS | CCD ---
Author Organization [facility] Care Team Providers Care Street Sweeper Name Role Phone SHANDRA RAMOS Attending Unavailable SHANDRA RAMOS Consulting Unavailable SHANDRA RAMOS Admitting Unavailable Shandra Mckinney MD Unavailable SHANDRA MCKINNEY Primary Care Physician Sonny CHANDLER Attending Unavailable Allergies Allergy Classification Reported Allergen(s) Allergy Type Date of Onset Reaction(s) Facility (1 source) No Known Medication Allergies; Translations: [No Known Medication Allergies] Propensity to adverse reactions (disorder) [facility] Repository Medications Current Medications Medication Drug Class(es) Dates Sig (Normalized) Sig (Original) diclofenac sodium 75 mg delayed release oral tablet (1 source) Nonsteroidal Anti-inflammatory Drug take 1 tablet by mouth in the morning diclofenac (Voltaren) 75 MG EC tablet Take 75 mg by mouth in the morning and 75 mg before bedtime. 0 Active pantoprazole 40 mg delayed release oral tablet (1 source) Proton Pump Inhibitor Start: 06-06-2025 take 1 tablet by mouth once daily Protonix 40 mg Tab-DR 40 mg = 1 tab(s), Oral, Daily, Refills(s) 0 Start Date: 06/06/25 Status: Ordered Repeat number: 1 sildenafil 50 mg oral tablet (1 source) Phosphodiesterase 5 Inhibitor Start: 06-06-2025 take 1 tablet by mouth once daily as needed sildenafil 50 mg Tab 50 mg = 1 tab(s), Oral, Daily, PRN erectile dysfunction, Refills(s) 0 Start Date: 06/06/25 Status: Ordered Repeat number: 1 Problems Problem Classification Problem Date Documented Date Episodic/Chronic Abdominal pain (4 sources) Right upper quadrant pain; Translations: [Right upper quadrant pain] Onset: 06-13-2025 Episodic Biliary tract disease (2 sources) Cholelithiasis without obstruction; Translations: [Calculus of gallbladder without cholecystitis without obstruction] Onset: 06-13-2025 Episodic Other liver diseases (1 source) Steatosis of liver 06-06-2025 Chronic Other male genital disorders (1 source) Impotence 06-06-2025 Chronic Other nutritional; endocrine; and metabolic disorders (1 source) Body mass index 30+ - obesity 06-13-2025 Chronic Other nutritional; endocrine; and metabolic disorders (1 source) Obesity caused by energy imbalance 06-06-2025 Chronic Other screening for suspected conditions (not mental disorders or infectious disease) (1 source) Encounter for screening for malignant neoplasm of prostate; Translations: [ENC SCREEN MALIG NEOPLASM PROSTATE] Onset: 09-24-2020 Episodic Residual codes; unclassified (1 source) Sleep apnea 06-06-2025 Chronic Results Test Name Value Interpretation Reference Range Facil ity Ambulatory Visit Summaryon 0 06-13-2025 Ambulatory Visit Summary Ambulatory Visit Summary DELL TRAVIS :1970 Visit Date:06/13/2025 Ambulatory Visit Instructions Your Care Team Attending Physician - GERALDINE PAIZ, Sonny Houston Primary Care Physician - SHANDRA MCKINNEY CNP This Is Your Medications List Contact prescribing physician if questions or concerns pantoprazole (Protonix 40 mg Tab-DR) sildenafil (sildenafil 50 mg Tab) Procedures Performed Left knee arthroscopy, Repair of right inguinal hernia, Right knee arthroscopy. Discharge Vitals Heart Rate (Peripheral) 68 Respiratory Rate 16 Blood Pressure 110/71 Height 180.3 cm Height 71 in Weight 112.8 kg Weight 248.681 lb BMI 34.7 Medications What How Much When Instructions Unchanged pantoprazole (Protonix 40 mg Tab-DR) 1 Tablets By Mouth Every day Contact prescribing physician if questions or concerns Unchanged sildenafil (sildenafil 50 mg Tab) 1 Tablets By Mouth Every day as needed for erectile dysfunction Contact prescribing physician if questions or concerns Allergies No Known Allergies No Known Medication Allergies Problems Ongoing - Any problem that you are currently receiving treatment for. BMI 34.0-34.9,adult Cholelithiasis Erectile dysfunction Hepatic steatosis Obesity due to excess calories Sleep apnea Patient Survey You may receive a survey via text or e-mail asking about your office visit. Please share your experience with us by completing your survey. We appreciate your feedback and thank you for choosing us for your care. Patient Portal You may access all of your results and other medical record information on our secure patient portal. If you are not signed up for this yet, please contact Health Information Management at [phone] to get signed up today. Language Information Language assistance services are available as needed. Normal Al [facility] INSULINon 09-16-2020 Insulin 11.4 uIU/mL Normal 2.6-24.9 [facility] Comment on above: Performed By: #### I NSULIN #### [facility] [address] [place], [place] [id number] Nima Zari CBC AUTO DIFFon 09-15-2020 Basophils (Bld) [#/Vol] 0.1 103/ul Normal 0.0-0.1 [facility] Comment on above: Performed By: #### C BC #### [facility] [address] [place], [place] [id number] Nima Zari Basophils/100 WBC (Bld) 0.9 % Normal 0.2-2.0 [place] Comment on above: Performed By: #### C BC #### [facility] [address] [place] [address] Nima Zari Eosinophils (Bld) [#/Vol] 0.2 103/ul Normal 0.0-0.7 [facility] Comment on above: Performed By: #### C BC #### [facility] [address] [place], [place] [id number] Nima Zari Eosinophils/100 WBC (Bld) 4.1 % Normal 0.9-7.0 [place] Comment on above: Performed By: #### C BC #### [facility] [address] [place], [place] [id number] Nima Zari Erythrocyte distribution width (RBC) [Ratio] 14.2 % Normal 11.0-15.0 [facility] Comment on above: Performed By: #### C BC #### [facility] [address] [place], [place] [id number] Nima Zari Hematocrit (Bld) [Volume fraction] 43.9 % Normal 42.0-54.0 [place] Comment on above: Performed By: #### C BC #### [facility] [address] [place], [place] [id number] Nima Zari Hemoglobin (Bld) [Mass/Vol] 14.1 g/dL Normal 14.0-18.0 [facility] Comment on above: Performed By: #### C BC #### [facility] [address] [place], [place] [address] Nima Zari IG # 0.03 10e3/ul Normal 0.00-0.03 [facility] Comment on above: Performed By: #### C BC #### [facility] [address] [place] [address] Nima Zari IG % 0.5 % Normal 0.0-0.5 [facility] Comment on above: Performed By: #### C BC #### [facility] [address] [place] [address] Nima Zari Lymphocytes (Bld) [#/Vol] 1.6 103/ul Normal 1.2-3.8 [facility] Comment on above: Performed By: #### C BC #### [facility] [address] [place] [address] Nima Zari Lymphocytes/100 WBC (Bld) 27.9 % Normal 20.5-60.0 [place] Comment on above: Performed By: #### C BC #### [facility] [address] [place], [place] [id number] Nimadanae Hameed MANUAL DIFF REQ NO Normal [facility] Comment on above: Performed By: #### C BC #### [facility] [address] [place], [place] [id number] Nima Zari MCH (RBC) [Entitic mass] 30.9 pg Normal 25.9-34.0 [facility] Comment on above: Performed By: #### C BC #### [facility] [address] [place], [place] [id number] Nima Zari MCHC (RBC) [Mass/Vol] 32.1 g/dL Normal 29.9-35.2 [facility] Comment on above: Performed By: #### C BC #### [facility] [address] [place], [place] [id number] Nima Zari MCV (RBC) [Entitic vol] 96.3 fL Critically high 80.0-94.0 [place] Comment on above: Performed By: #### C BC #### [facility] [address] [place], [place] [id number] Nima Zari Monocytes (Bld) [#/Vol] 0.5 103/ul Normal 0.3-0.8 [place] Comment on above: Performed By: #### C BC #### [facility] [address] [place], [place] [address] Nima Zari Monocytes/100 WBC (Bld) 8.3 % Normal 1.7-12.0 [place] Comment on above: Performed By: #### C BC #### [facility] [address] [place], [place] [id number] Nima Zari Neutrophils (Bld) [#/Vol] 3.4 103/ul Normal 1.4-6.5 [place] Comment on above: Performed By: #### C BC #### [facility] [address] [place] [address] Nima Zari Neutrophils/100 WBC (Bld) 58.3 % Normal 43.0-75.0 [place] Comment on above: Performed By: #### C BC #### [facility] [address] [place], [place] [id number] Nima Zari Platelet mean volume (Bld) [Entitic vol] 10.8 fL Normal 9.5-13.5 [place] Comment on above: Performed By: #### C BC #### [facility] [address] [place], [place] [address] Nima Zari Platelets (Bld) [#/Vol] 245 103/ul Normal 150-450 [facility] Comment on above: Performed By: #### C BC #### [facility] [address] [place], [place] [address] Nima Zari RBC (Bld) [#/Vol] 4.56 106/ul Critically low 4.70-6.10 [facility] Comment on above: Performed By: #### C BC #### [facility] [address] [place], [place] [address] Nima Hameed WBC (Bld) [#/Vol] 5.9 103/ul Normal 4.0-11.0 [facility] Comment on above: Performed By: #### C BC #### [facility] [address] [id number] Nima Hameed GLYCOHEMOGLOBIN A1Con 2019 Glucose [Mass/Vol] 117 mg/dL Normal [facility] Comment on above: Performed By: #### A 1C #### [facility] [address] [id number] Nima aHmeed HbA1c (Bld) [Mass fraction] 5.7 % Normal <=6.0 [place] Comment on above: Performed By: #### A 1C #### [facility] [address] [place], [place] [address] Nima Hameed LIPID PROFILEon 09-15-2020 CHOL-HDL RATIO NORM SEE BELOW Normal [facility] Comment on above: Result Comment: 3.3 - 4.4 LOW RISK 4.4 - 7.1 AVERAGE RISK 7.1 - 11.0 MODERATE RISK >11.0 HIGH RISK Performed By: #### C MP, PSASC, LIPID #### [facility] [address] [place] [address] Nima Zari Cholesterol [Mass/Vol] 157 mg/dL Normal <=200 [place] Comment on above: Performed By: #### C MP, PSASC, LIPID #### [facility] [address] [id number] Nima Zari Cholesterol in HDL [Mass/Vol] > or = 60 mg/dl - LOW CARDIOVASCULAR RISK <40 mg/dl - HIGH CARDIOVASCULAR RISK Normal [place] Comment on above: Performed By: #### C MP, PSASC, LIPID #### [facility] [address] [place], [place] [address] Nima Zari Cholesterol in HDL [Mass/Vol] 56 mg/dL Normal [place] Comment on above: Performed By: #### C MP, PSASC, LIPID #### [facility] [address] [id number] Nima Zari Cholesterol in LDL [Mass/Vol] 96.6 mg/dL Normal [place] Comment on above: Performed By: #### C MP, PSASC, LIPID #### [facility] [address] [place], [place] [address] Nima Zari Cholesterol in LDL [Mass/Vol] SEE BELOW Normal [place] Comment on above: Result Comment: <100 mg/dl OPTIMAL 100 - 129 mg/dl NEAR OR ABOVE OPTIMAL 130 - 159 mg/dl BORDERLINE HIGH 160 - 189 mg/dl HIGH >190 mg/dl VERY HIGH Performed By: #### C MP, PSASC, LIPID #### [facility] [address] [place], [place] [address] Nima Zari Cholesterol.total/Cho lesterol in HDL [Mass ratio] 2.8 {ratio} Normal [place] Comment on above: Performed By: #### C MP, PSASC, LIPID #### [facility] [address] [place], [place] [address] Nima Zari Triglyceride [Mass/Vol] 22 mg/dL Normal <=150 [place] Comment on above: Performed By: #### C MP, PSASC, LIPID #### [facility] [address] [place], [place] [address] Nima Zari VLDL CALC 4.4 mg/dL Normal [place] Comment on above: Performed By: #### C MP, PSASC, LIPID #### [facility] [address] [place], [place] [address] Nima Zari PROF 14(COMP METB)on 020 Albumin [Mass/Vol] 3.6 g/dL Normal 3.5-5.0 [facility] Comment on above: Performed By: #### C MP, PSASC, LIPID #### [facility] [address] [place], [place] [address] Nima Zari Albumin/Globulin [Mass ratio] 1.2 {ratio} Normal [place] Comment on above: Performed By: #### C MP, PSASC, LIPID #### [facility] [address] [place], [place] [address] Nima Zari ALP [Catalytic activity/Vol] 43 U/L Normal 38-126 [place] Comment on above: Performed By: #### C MP, PSASC, LIPID #### [facility] [address] [id number] Nima Zari ALT [Catalytic activity/Vol] 30 U/L Normal 21-72 [place] Comment on above: Performed By: #### C MP, PSASC, LIPID #### [facility] [address] [id number] Nima Zari Anion gap [Moles/Vol] 11.1 mmol/L Normal [facility] Comment on above: Performed By: #### C MP, PSASC, LIPID #### [facility] [address] [address] Nima Zari AST [Catalytic activity/Vol] 19 U/L Normal 17-59 [place] Comment on above: Performed By: #### C MP, PSASC, LIPID #### [facility] [address] [address] Nima Zari Bilirubin Ql (U) 0.4 mg/dL Normal 0.2-1.3 [facility] Comment on above: Performed By: #### C MP, PSASC, LIPID #### [facility] [address] [place] [address] Nima Zari Calcium [Mass/Vol] 8.4 mg/dL Normal 8.4-10.2 [facility] Comment on above: Performed By: #### C MP, PSASC, LIPID #### [facility] [address] [place] [address] Nima Zari Chloride [Moles/Vol] 110 mmol/L Critically high 98-107 [facility] Comment on above: Performed By: #### C MP, PSASC, LIPID #### [facility] [address] [id number] Nima Zari CO2 [Moles/Vol] 25.5 mmol/L Normal 22.0-30.0 [facility] Comment on above: Performed By: #### C MP, PSASC, LIPID #### [facility] [address] [id number] Nima Zari Creatinine [Mass/Vol] 1.19 mg/dL Normal 0.66-1.25 [place] Comment on above: Performed By: #### C MP, PSASC, LIPID #### [facility] [address] [id number] Nima Zari EGFR-AF GREENLANDIC >60 Normal >=60 [facility] Comment on above: Performed By: #### C MP, PSASC, LIPID #### [facility] [address] [id number] Nima Zari EGFR-NON AF GREENLANDIC >60 Normal >=60 [place] Comment on above: Performed By: #### C MP, PSASC, LIPID #### [facility] [address] [address] Nima Zari Globulin (S) [Mass/Vol] 2.9 g/dL Normal [place] Comment on above: Performed By: #### C MP, PSASC, LIPID #### [facility] [address] [address] Nima Zari Glucose [Mass/Vol] 118 mg/dL Critically high 74-106 [facility] Comment on above: Performed By: #### C MP, PSASC, LIPID #### [facility] [address] [place] [address] Nima Zari Potassium [Moles/Vol] 4.6 mmol/L Normal 3.4-5.0 [place] Comment on above: Performed By: #### C MP, PSASC, LIPID #### [facility] [address] [place] [address] Nima Zari Protein [Mass/Vol] 6.5 g/dL Normal 6.1-8.2 [facility] Comment on above: Performed By: #### C MP, PSASC, LIPID #### [facility] [address] [place] [address] Nima Zari Sodium [Moles/Vol] 142 mmol/L Normal 137-145 [facility] Comment on above: Performed By: #### C MP, PSASC, LIPID #### [facility] [address] [address] Nima Zari Urea nitrogen [Mass/Vol] 12.0 mg/dL Normal 9.0-20.0 [place] Comment on above: Performed By: #### C MP, PSASC, LIPID #### [facility] [address] [address] Nima Hameed Urea nitrogen/Creatinine [Mass ratio] 10.1 mg/mg Normal [place] Comment on above: Performed By: #### C MP, PSASC, LIPID #### [facility] [address] [id number] Nima Hameed Encounters Encounter Date Encounter Type Care Provider Facility Start: 06-13-2025 End: 06-13-2025 ambulatory Sonny CHANDLER Facility:[facility] Start: 06-13-2025 End: 06-13-2025 Patient encounter procedure Sonny CHANDLER [facility] [place] Start: 05-28-2025 ambulatory Sonny CHANDLER Facility:[facility] Start: 12-05-2023 End: 12-05-2023 Patient encounter procedure Gunnar Concepcion [facility] Start: 11-07-2023 Bamboo flowsheet Shandra main PT Work Phone: [facility] Start: 11-07-2023 Bamboo flowsheet Shandra main PT Work Phone: [facility] Start: 09-24-2020 Encounter for genera l adult medical examination without abnormal findings SHANDRA RAMOS [place] Start: 09-15-2020 End: 09-16-2020 Patient encounter procedure SHANDRA RAMOS Facility:[facility] Encounter for genera l adult medical examination without abnormal findings SHANDRA RAMOS [place] Procedures Date Procedure Procedure Detail Performing Clinician Start: 09-15-2020 [object Object] SHANDRA RAMOS Comment on above: Performed By: #### C MP, PSASC, LIPID #### [facility] [address] [address] Nima Hameed Arthroscopy of left knee joint Sonny CHANDLER Comment on above: x 2 Arthroscopy of right knee joint Sonny CHANDLER Repair of right ingu inal hernia Sonny CHANDLER Plan of Treatment Date Care Activity Detail Author Start: 11-07-2023 End: 11-07-2023 ambulatory 11/07/2023 3:30 PM EST Evaluation [facility] [address] [place] [address] Shandra Liu, PT [address] [place] [address] Internal derangement of right knee; Right knee pain, unspecified chronicity [facility] Comment on above: Internal derangement of right knee; Right knee pain, unspecified chronicity Payers Date Payer Category Payer Medicaid [id number] 1970 Unknown [id number] 1970 Unknown [id number] 1959 Unknown [id number] Social History Date Type Detail Facility Start: 10-10-2023 End: 06-13-2025 Tobacco smoking status DEIS Never smoked tobacco [facility] Start: 10-10-2023 Tobacco use and exposure Smokeless tobacco non-user [facility] Start: 10-10-2023 Alcohol intake Current drinke r of alcohol (finding) [facility] Start: 10-10-2023 Alcohol intake [facility] Start: 10-10-2023 Tobacco use panel [facility] Start: 1970 Sex Assigned At Not on file [facility] Tobacco smoking status [facility] Tobacco smoking status Never [facility] [place] Start: 12-02-2023 Sex Male (finding) [facility] Clinical Note 06-13-2025 Note Date & Type Note Facility 06-13-2025 Note General Surgery Offi ce/Clinic Note Chief Complaint consultation for abdominal pain HPI Staff 55 year old male presents on consultation from Megha Mckinney for epigastric/RUQ pain. Reports 9 month history of intermittent dull ache. Verbalized discomfort can radiate to back and epigastric area. Verbalized he will experience this every other day and discomfort will last approximately 30 minutes. Denies food triggers. Denies nausea, vomiting or bowel changes. RUQ US completed 05/28 with cholelithiasis and hepatic steatosis. History of Present Illness 55 yo male with h/o hepatic steatosis, JYOTI, referred for cholelithiasis/abd pain; patient reports pain began 9 months ago as intermittent upper abd ache, no radiation of pain or abd tenderness; no known triggers, no severe pain; some GERD symptoms; sometimes worse with overeating or junk food; no N/V or bowel changes; no fevers or jaundice, no h/o pancreatitis; treated with Protonix with improvement in GERD, no change in upper abd ache; no nighttime symptoms; recent GB US with 3 cm stone, no wall thickening or ductal dilation; no abd operations; no asa or NSAID use; no tobacco use. Review of Systems PHQ Score Initial Depression Screen Score: 0 SCORE ROS - Provider Constitutional: no fever, no sweats, no weight loss. Eyes: no glasses, no blurred vision, no visual loss. ENMT: no dentures, no hoarseness, no swallowing difficulties, no hearing loss, no ear infection(s), no nose bleeds. Cardiovascular: normal blood pressure, no chest pain, regular heartbeat, no heart murmur. Respiratory: no shortness of breath, no cough, no asthma, no wheezing. Gastrointestinal: no nausea, no vomiting, no diarrhea, no constipation, no blood in stool, no change in bowel habits, no abdominal pain, no hepatitis. Genitourinary: no kidney stones, no urine infection, no dysuria. Musculoskeletal: no pain, no weakness. Skin: no changing moles, no rash, no skin lumps. Neurologic: no seizures, no epilepsy, no headache. Psychiatric: no emotional or psychiatric problem. Heme/Lymph: no bleeding problems, no anemia, no blood clots, no transfusions. Allergy/Immunologic: no swollen lymph nodes/glands, no IV drug abuse. Other: Additional ROS info: Except as noted in the above Review of Systems and in the History of Present Illness, all other systems have been reviewed and are negative or noncontributory. Physical Exam Vitals & Measurements HR: 68(Peripheral) RR: 16 BP: 110/71 HT: 180.3 cm HT: 71 in WT: 248.681 lb WT: 112.8 kg BMI: 34.7 HEENT: normal conjunctiva, sclera clear, no scleral icterus, EOM intact, PERRLA, oral mucosa moist without lesions. Neck: trachea midline, no mass, symmetric, no thyromegaly or nodules, no adenopathy Respiratory: lungs CTA, respirations non labored. Cardiovascular: regular rate and rhythm, no murmur, no pedal edema or varicosities. Gastrointestinal: obese, soft, non distended, no tenderness, no masses, no palpable hernias, diastasis recti yes, no hepatosplenomegaly; normal bs Musculoskeletal: normal gait, digits and nails without infection, nodes, cyanosis, clubbing. Skin: no rashes, no lesions, no ulcers, no subcutaneous nodules, induration. Psychiatric/Neuro: oriented to time, place, person, judgement normal, affect appropriate for age, insight intact, no focal deficits. Tests:, x-rays reviewed, review of old records completed , Assessment/Plan 1. Cholelithiasis (K80.20: Calculus of gallbladder without cholecystitis without obstruction) gallbladder poorly visualized on US, but no evidence of cholecystitis; symptoms not consistent with biliary colic; will obtain abd/pelvic ct scan with contrast for further evaluation; recommend low fat diet; will call patient with result; he is to call sooner if problems/questions. Ordered: CT Abdomen/Pelvis w/ Contrast 2. Epigastric pain (R10.13: Epigastric pain) see # 1 Ordered: CT Abdomen/Pelvis w/ Contrast 3. Abdominal pain, right upper quadrant (R10.11: Right upper quadrant pain) see # 1 Ordered: CT Abdomen/Pelvis w/ Contrast Follow-up No qualifying data available Problem List/Past Medical History Ongoing Abdominal pain, right upper quadrant BMI 34.0-34.9,adult Cholelithiasis Epigastric pain Erectile dysfunction Hepatic steatosis Obesity due to excess calories Sleep apnea Historical No qualifying data Procedure/Surgical History Left knee arthroscopy, Repair of right inguinal hernia, Right knee arthroscopy. Medications Protonix 40 mg Tab-DR, 40 mg= 1 tab(s), Oral, Daily sildenafil 50 mg Tab, 50 mg= 1 tab(s), Oral, Daily, PRN Allergies No Known Allergies No Known Medication Allergies Social History Alcohol Current, Beer, 1-2 times per week, 06/13/2025 Substance Abuse - Denies Substance Abuse, 06/13/2025 Tobacco Never (less than 100 in lifetime) Tobacco Use:. Never Smokeless Tobacco Use:., 06/13/2025 Family History Diabetes mellitus type 2: Mother. Primary malignant neop (more content not included)... [facility] Comment on above: Result Comment: Elec tronically Signed By: GERALDINE PAIZ, Sonny Figueredo\Date and Time Signed: 06/13/25 15:06 EDT Evaluation + Plan note Note Date & Type Note Facility Evaluation + Plan note No data available for this section [facility] Hospital Discharge instructions Note Date & Type Note Facility Hospital Discharge instructions No data available for this section [facility] Progress note Note Date & Type Note Facility Progress note No data available for this section [facility] Summary Purpose Family History No Family History Records Found No data available for this section No data available for this section No Family History Records Found Advance Directives No Advanced Directives Records FoundNo Advanced Directives Records Found Additional Source Comments (unrecognized sect ion and content) No Status Records FoundNo Status Records Found INFORMATION SOURCE (unrecogn ized section and content) DATE CREATED AUTHOR 09/25/2020 [facility] DATE CREATED AUTHOR AUTHOR'S ORGANIZ ATION 06/15/2025 [facility] Care Teams (unrecognized sec tion and content) Street Sweeper Relationship Specialty Start Date End Date Shandra Mckinney MD [address] [place] [address] Referring Physician Family Medicine 10/10/23 FOR RECORDS [...] BE BASED ON THE PRIMARY CLINICAL RECORDS. [facility]. provides no warranty or guarantee of the accuracy or completeness of information in this document.
--- OUTSIDE RECORDS SUMMARY | 2025-07-08 08:45 | XMS_ITS | Patient Health Record ---
Author Organization [facility] [place] Address [address] [place] [address] Care Team Providers Care Medical Photographer Name Role Phone Shandra Mckinney Primary Care Provider [phone] Gwynyosef Shun Hernandez [phone] Allergies No Known Allergies Results Component Value Reference Range Notes INSULIN Reviewed date:09/18/2024 08:58:40 AM Interpretation: Performing Lab: Notes/Report: [facility] , Insulin 15.3 2.6-24.9 uIU/mL Administrative Liaison: Dipak Max PhD, Phone: [phone] Performed at: - [facility] [address] [id number] Performing Lab: see note - [facility] LB GLYCOHEMOGLOBIN A1C Reviewed date:09/17/2024 02:04:19 PM Interpretation: Performing Lab: Notes/Report: [facility] , Glycohemoglobin A1C 5.7 4.5-6.2 % > 7.0 ACTION SUGGESTED ADA RECOMMENDED LIMIT 4.0 - 6.0 ADA THERAPEUTIC TARGET < 7.0 Estimated Average Glucose 117 Performing Lab: see note - [facility] LB CBC AUTO DIFF Reviewed date:09/17/2024 02:04:19 PM Interpretation: Performing Lab: Notes/Report: [facility] , White Blood Count 6.4 4.0-11.0 10 3/uL Red Blood Count 4.77 4.70-6.10 10 6/uL Hemoglobin 14.7 14.0-18.0 g/dL Hematocrit 46.3 42.0-54.0 % Mean Corpuscular Volume 97.1 80.0-94.0 fL Mean Corpuscular Hemoglobin 30.8 25.9-34.0 pg Mean Corpuscular HGB Conc 31.7 29.9-35.2 g/dL Red Cell Distribution Width 14.0 11.0-15.0 % Platelet Count 274 150-450 10 3/uL Mean Platelet Volume 10.6 9.5-13.5 fL Neutrophils Percent Auto 59.7 43.0-75.0 % Lymphocytes Percent Auto 27.3 20.5-60.0 % Monocytes Percent Auto 7.8 1.7-12.0 % Eosinophils Percent Auto 3.8 0.9-7.0 % Basophils Percent Auto 1.1 0.2-2.0 % Immature Granulocytes Pct Auto 0.3 0.0-0.5 % Neutrophils Absolute Auto 3.8 1.4-6.5 10 3/uL Lymphocytes Absolute Auto 1.8 1.2-3.8 10 3/uL Monocytes Absolute Auto 0.5 0.3-0.8 10 3/uL Eosinophils Absolute Auto 0.2 0.0-0.7 10 3/uL Basophils Absolute Auto 0.1 0.0-0.1 10 3/uL Immature Granulocytes Abs Auto 0.02 0.00-0.03 10 3/uL Performing Lab: see note ML - [facility] US right upper quadrant Reviewed date:05/28/2025 11:10:26 AM Interpretation: Performing Lab: Notes/Report: Source Facility: [place] [id number] Ultrasound Report Signed Patient: SALEEM TRAVIS MR#: [id number] : 1970 Acct:[id number] Age/Sex: 55 / M ADM Date: 05/28/25 Loc: US Attending Dr: SHANDRA MCKINNEY Ordering Physician: SHANDRA MCKINNEY Date of Service: 05/28/25 Procedure(s): US right upper quadrant Accession Number(s): [id number] cc: SHANDRA MCKINNEY [place] [address] Patient Name: SALEEM TRAVIS MRN: [id number] date: 1970 Sex: M Assigned Patient Location: US Current Patient Location: US Accession/Order Number: [id number] Exam Date: 05/28/2025 07:08 Report Date: 05/28/2025 09:24 At the request of: SHANDRA MCKINNEY Procedure: US right upper quadrant LIMITED RIGHT UPPER QUADRANT ABDOMINAL ULTRASOUND CLINICAL HISTORY: R10.11 Right upper quadrant abdominal pain COMPARISON: None The gallbladder is physiologically distended. There is a large stone toward the gallbladder neck measuring over 3 cm in size. No wall thickening or pericholecystic fluid is noted. No intra- or extrahepatic biliary dilatation is evident. The common duct measures 3 - 4 mm. The liver is slightly echogenic with respect to the right kidney and fatty infiltration is not completely excluded. No intrahepatic masses are seen. There is appropriate hepatopetal flow within the main portal vein. The visualized portions of the pancreas show no significant sonographic abnormality. Cursory evaluation of the right kidney reveals no hydronephrosis or fluid within Suarez's pouch. US/US right upper quadrant IMPRESSION: CHOLELITHIASIS. POSSIBLE FATTY LIVER. Impression dictated by: Zari Morton M.D. 05/28/2025 9:24 AM Dictation Location: [place] [address] Electronically authenticated by: [id number] Y Date: 05/28/2025 09:24 Dictated By: aZri Morton M.D. Signed By: 05/28/25925 DD/ 3 TD/TT: Bottle Capping Machine Operator: URIC ACID SERUM Reviewed date:09/17/2024 02:04:19 PM Interpretation: Performing Lab: Notes/Report: [facility] , Uric Acid 5.6 3.5-7.2 mg/dL Performing Lab: see note ML - [facility] LB TSH Reviewed date:09/17/2024 02:04:19 PM Interpretation: Performing Lab: Notes/Report: [facility] , Thyroid Stimulating Hormone 1.469 0.358-3.740 u IU/mL Performing Lab: see note ML - [facility] LB T4 Reviewed date:09/17/2024 02:04:19 PM Interpretation: Performing Lab: Notes/Report: [facility] , T4 Thyroxine 6.80 4.50-12.10 ug/dL Performing Lab: see note ML - [facility] LB PROF 14(COMP METB) Reviewed date:09/17/2024 02:04:19 PM Interpretation: Performing Lab: Notes/Report: [facility] , Sodium 143 136-145 mmol/L Potassium 4.6 3.5-5.1 mmol/L Chloride 106 98-107 mmol/L Carbon Dioxide 28.6 21.0-32.0 mmol/L Anion Gap 13.0 Glucose 117 74-106 mg/dL Blood Urea Nitrogen 11.0 7.0-18.0 mg/dL Creatinine 1.30 0.70-1.30 mg/dL Estimated GFR ( Nany >60 >=60 mL/min/1.73m 2 Estimated GFR (Non- Zamzam 58 >=60 mL/min/1.73m 2 BUN Creatinine Ratio 8.5 Calcium 9.0 8.5-10.1 mg/dL Bilirubin Total 0.4 0.2-1.0 mg/dL Aspartate Amino Transferase 15 15-37 U/L Alanine Aminotransferase 27 16-63 U/L Alkaline Phosphatase 66 46-116 U/L Total Protein 7.1 6.4-8.2 g/dL Albumin Level 3.8 3.4-5.0 g/dL Globulin 3.3 Albumin Globulin Ratio 1.2 Performing Lab: see note ML - [facility] LB LIPID PROFILE Reviewed date:09/17/2024 02:04:19 PM Interpretation: Performing Lab: Notes/Report: [facility] , Triglycerides 48 <=150 mg/dL Cholesterol 175 <=200 mg/dL HDL Cholesterol 66 40-60 mg/dL > or =60 mg/dl - LOW CARDIOVASCULAR RISK <40 mg/dl - HIGH CARDIOVASCULAR RISK LDL Cholesterol Calculated 100.0 >190 mg/dl VERY HIGH 160-189 mg/dl HIGH 100-129 mg/dl NEAR OR ABOVE OPTIMAL <100 mg/dl OPTIMAL 130-159 mg/dl BORDERLINE HIGH VLDL CHOLESTEROL 9.6 Chol HDL Ratio 2.7 4.4 - 7.1 AVERAGE RISK 7.1 - 11.0 MODERATE RISK 3.3 - 4.4 LOW RISK >11.0 HIGH RISK Performing Lab: see note ML - [facility] FREE T3 Reviewed date:09/17/2024 02:04:19 PM Interpretation: Performing Lab: Notes/Report: [facility] , Free T3 2.67 2.18-3.98 pg/mL Performing Lab: see note ML - [facility] LB PSA SCREENING Reviewed date:09/17/2024 02:04:19 PM Interpretation: Performing Lab: Notes/Report: [facility] , Prostate Specific Antigen Scrn 0.15 <=4.00 ng/mL Performing Lab: see note ML - [facility] LB Reason For Referral Diagnosis 1 Right upper quadrant abdominal pain (R10.11) Referral Organization [facility] Referring Provider First Name Shandra Referring Provider Last Name Hank Referring Provider Speciality Family Med wolfgang Referred Provider Sonny Friedman Referred Provider Specialty General Surg darci Referral Priority Routine Medications Medication SIG (Take, Route, Frequency, Duration) Notes Start Date End Date Status Protonix 40 MG 1 tablet Orally Once a day; Duration: 30 days 12/25/2024 Active Sildenafil Citrate 50 MG 1 tablet as nee ded Orally Once a day; Duration: 30 days 04/09/2024 Active Social History Tobacco Use: Social History Observation Description Date Details (start date - stop date) Never Smoker NA - NA Tobacco Use/Smoking Question Answer Notes Patient is a nonsmoker Alcohol Screen (Audit-C) Question Answer Notes Did you have a drink contain ing alcohol in the past year? Yes How often did you have 6 or more drinks on one occasion in the past year? Never (0 point) How many drinks did you have on a typical day when you were drinking in the past year? 1 or 2 drinks (0 point) How often did you have a dri nk containing alcohol in the past year? Weekly (3 points) Points 3 Interpretation Negative AUDIT-C (Standard) Question Answer Notes Did you have a drink contain ing alcohol in the past year? Yes How often did you have a dri nk containing alcohol in the past year? Never (0 point) How many drinks did you have on a typical day when you were drinking in the past year? 1 or 2 drinks (0 point) How often did you have six o r more drinks on one occasion in the past year? 2 to 4 times a month (2 points) Points 2 Interpretation Negative Problems Problem Type SNOMED Code ICD Code Onset Dates Problem Status W/U Status Risk Notes Problem Fatigue (51145906) Fatigue (R53.83) Active confirmed Problem Hyperglycemia (06516689) Hyperglycemia (R73.9) Active confirmed Problem Sleep apnea (55709935) Sleep apnea (G47.30) Active confirmed Problem Erectile dysfunction (042894257) Erectile dysfunction (N52.9) Active confirmed Problem Fatty liver (386108202) Fatty liver (K76.0) Active confirmed Problem Gastritis (1575883) Gastritis (K29.70) Active confirmed Problem Well adult (158064765) Well adult (Z00.00) Active confirmed Problem Cholelithiasis (639912706) Cholelithiases (K80.20) Active confirmed Problem Paronychia (24121136) Paronychia (L03.019) Active confirmed Problem Right upper quadrant pain (454095473) Right upper quadrant abdominal pain (R10.11) Active confirmed Problem Lateral epicondylitis (001698244) Epicondylitis, lateral (M77.10) Active confirmed Problem Medial epicondylitis of elbow joint (07001381) Golfers elbow (M77.00) Active confirmed Vital Signs Blood pressure diastolic 74 mm Hg 05/20/2025 Height 71 in 05/20/2025 Blood pressure systolic 110 mm Hg 05/20/2025 Weight 242.2 lbs 05/20/2025 BMI 33.78 kg/m2 05/20/2025 Encounters Encounter Location Date Provider Diagnosis [place] [place] [address] 09/10/2024 Shandra Mckinney Wellness examination Z00.00 [facility] [address] [place] [address] 12/25/2024 Shun Hoy Gastritis K29.70 and Right upper quadrant abdominal pain R10.11 [facility] [address] [place] [address] 05/20/2025 Shandra Mckinney Right upper quadrant abdominal pain R10.11 [facility] [address] [place] [address] 09/17/2024 Shandra Mckinney [facility] [address] [place] [address] 09/24/2024 Shandra Mckinney [facility] [address] [place] [address] 05/28/2025 Shandra Mckinney Right upper quadrant abdominal pain R10.11 and Cholelithiases K80.20 Assessments Encounter Date Diagnosis (ICD Code) Assessment Notes Treatment Notes Treatment Clinical Notes Section Notes 09/10/2024 Wellness examination (ICD-10 - Z00.00) cologuard ordered ROS done exam done 12/25/2024 Gastritis (ICD-10 - K29.70) 12/25/2024 Right upper quadrant abdominal pain (ICD-10 - R10.11) 05/20/2025 Right upper quadrant abdominal pain (ICD-10 - R10.11) discussed working on healthy diet limit caffeine, fried fatty fast foods, processed foods continue protonix gi referral next? 05/28/2025 Right upper quadrant abdominal pain (ICD-10 - R10.11) 05/28/2025 Cholelithiases (ICD-10 - K80.20) 09/10/2024 Other continue to monitor abdominal sx, defers US or change meds at this time Plan Of Treatment Pending Test Test Name Order Date CMP (COMPLETE METABOLIC PANEL) 4 HEMOGLOBIN A1C (GLYCO) 09/10/2024 INSULIN, TOTAL 09/10/2024 LIPID PANEL (CHOL/TRIG/HDL/LDL) 09/10/20 24 CBC WITH DIFF 09/10/2024 URIC ACID 09/10/2024 XR Knee RT (3 views) * 08/29/2023 PSA, TOTAL 09/10/2024 MRI KNEE RT WO CON 09/20/2023 THYROID PANEL (T4/TSH/FREE T3) 4 US abdomen limited 05/20/2025 Insurance Providers Payer Name Payer Address Payer Phone Subscriber Number Group Number Insured Name Patient Relationship to Insured Coverage Start Date Coverage End Date [employer] [place] [employer] [address] [place] [phone] [id number] Saleem Travis Self - patient is the insured Medical (General) History Medical History History ICD Code Hyperglycemia R73.9 Sleep apnea G47.30 Paronychia L03.019 Erectile dysfunction N52.9 Well adult Z00.00 Golfers elbow M77.00 Epicondylitis, lateral M77.10 Fatigue R53.83 Surgical History Surgery Date(Month/Year) left scope x2, right knee scope x1
--- OUTSIDE RECORDS SUMMARY | 2025-07-08 08:45 | XMS_ITS | Clinical Summary ---
Author Organization [facility] Address [address] [place] [address] Care Team Providers Care Mat Maker Name Role Phone Shandra Mckinney MD Unavailable [phone] Unallocated, Noms Provider Primary Care Provi nilay Allergies No known active allergies Medications No known medications Active Problems Problem Noted Date Diagnosed Date Internal derangement of right knee 11/17/2023 Right knee pain 11/17/2023 Family History Medical History Relation Name Comments Diabetes Mother Astrid Gunderson Relation Name Status Comments Mother Astrid Gunderson Social History Tobacco Use Types Packs/Day Years Used Date Smoking Tobacco: Never Smokeless Tobacco: Never Alcohol Use Standard Drinks/Week Comments Yes 1 (1 standard drink = 0.6 oz pur e alcohol) Sex and Gender Information Value Date Recorded Sex Assigned at Not on file Legal Sex Male 12:47 PM EST Gender Identity Not on file Sexual Orientation Not on file Last Filed Vital Signs Vital Sign Reading Time Taken Comments Blood Pressure - - Pulse - - Temperature 36.3 C (97.3 F) 12/14/2023 1:27 PM EDT Respiratory Rate - - Oxygen Saturation - - Inhaled Oxygen Concentration - - Weight 117 kg (258 lb) 02/27/2024 9:23 AM EDT Height 180.3 cm (5' 11 ) 02/27/2024 9:23 AM EDT Body Mass Index 35.98 02/27/2024 9:23 AM EDT Plan of Treatment Health Maintenance Due Date Last Done Comments CT Colonography 1970 Colonoscopy 1970 Colorectal Cancer Screening 1970 FIT-DNA 1970 FIT 1970 FOBT 1970 Sigmoidoscopy 1970 Influenza Vaccine (#1) 2025 Insurance [employer] Care Teams Mat Maker Relationship Specialty Start Date End Date Unallocated, Noms Provider, [address] [place] [address] PCP - General Family Medicine 11/07/23 Shandra Mckinney MD [address] [place] [address] Referring Physician Family Medicine 10/10/23
--- OUTSIDE RECORDS SUMMARY | 2025-07-08 08:45 | XMS_ITS | Encounter Summary ---
Author Organization [facility] Address [address] [place] [address] Care Team Providers Care Glove Factory Sewer Name Role Phone Shandra Mckinney MD Unavailable [phone] Unallocated, Noms Provider Primary Care Provi nilay Encounter Details Date Type Department Care Team (Late st Contact Info) Description 12/05/2023 Clinisync Result Encounter [facility] External Department Unsolicited Gunnar Concepcion, DO [address] [place] [address] Social History Tobacco Use Types Packs/Day Years Used Date Smoking Tobacco: Never Smokeless Tobacco: Never Alcohol Use Standard Drinks/Week Comments Yes 1 (1 standard drink = 0.6 oz pur e alcohol) Sex and Gender Information Value Date Recorded Sex Assigned at Not on file Legal Sex Male 12:47 PM EST Gender Identity Not on file Sexual Orientation Not on file documented as of this encounter Plan of Treatment Not on file documented as of this encounter Procedures Procedure Name Priority Date/Time Associated Diagnosis Comments MRI KNEE W/O CONTRAST RIGHT 12/05/2023 7:16 PM EDT documented in this encounter Results * MRI KNEE W/O CONTRAST RIGHT (12/05/2023 7:16 PM EDT) Anatomical Region Laterality Modality Other 12/05/2023 7:16 PM EDT Narrative 12/06/2023 1:36 PM EDT Exam Date/Time: 12/05/2023 19:59 EDT Reason for [...] by: REJI Technologist: KAMRON Technical Comments None Procedure Note Radiology, Radiologist, - 12/06/2023 Exam Date/Time: 12/05/2023 19:59 EDT Reason for Exam: M23.91 S83.241A Report IMPRESSION: Possible changes from prior partial medial meniscectomy, versus tear. Osteoarthritis as discussed. EXAMINATION: MRI Knee w/o Contrast Right HISTORY: Chronic right knee pain. History of previous surgery 10 yearsago. Intermittent swelling laterally. No recent injury. TECHNIQUE: Routine non-contrast MRI of the knee RIGHT COMPARISON: None RESULT: MENISCI: Medial Meniscus: Majority of the body appears absent, which may bepostsurgical from prior meniscectomy, otherwise represents tear. Lateral Meniscus: Intact LIGAMENTS: ACL, PCL, MCL, and LCL complex intact. CARTILAGE: Small area of full-thickness chondral loss involving thelateral patellar facet superiorly, associated subchondral cystic change. Subchondral edemawithin the medial compartment suspicious for full-thickness fissuring. Smallosteophytes. TENDONS: Distal quadriceps intact. Patellar tendon intact. Popliteusintact. BONES AND MARROW: No evidence of fracture or bone marrow replacingprocess. MUSCLES: Muscle bulk and signal intensity are normal. JOINT FLUID AND SYNOVIUM: Small to moderate joint effusion. No synovitis.Trace Koenig's cyst. OTHER: Subcutaneous edema/bursitis anteriorly. Ordering Provider: Gunnar Concepcion FINAL REPORT Dictated: 12/06/2023 1:33 pm Xavier Duncan MD Signed (Electronic Signature): 12/06/2023 1:33 pm Signed by: Xavier Duncan MD Transcribed by: REJI Technologist: KAMRON Technical Comments None us Gunnar Concepcion DO [facility] Final Result documented in this encounter Visit Diagnoses Not on filedocumented in this encounter Care Teams Glove Factory Sewer Relationship Specialty Start Date End Date Unallocated, Noms Provider, [address] [place] [id number] PCP - General Family Medicine 11/07/23 Shandra Mckinney MD [address] [place] [address] Referring Physician Family Medicine 10/10/23 documented as of this encounter
--- OUTSIDE RECORDS SUMMARY | 2025-07-08 08:45 | XMS_ITS | Encounter Summary ---
Author Organization [facility] Address [address] [place] [address] Care Team Providers Care User Support Specialist Name Role Phone Shandra Mckinney MD Unavailable [phone] Unallocated, Buffy Provider Primary Care [facility] Encounter Details Date Type Department Care Team (Late st Contact Info) Description 01/12/2024 Abstract [facility] [address] [place] [address] Gunnar Concepcion, DO [address] [place] [address] Social History Tobacco Use Types Packs/Day Years [...] on file documented as of this encounter Visit Diagnoses Not on filedocumented in this encounter Care Teams User Support Specialist Relationship Specialty Start Date End Date Unallocated, [place] ProviderMD [facility] [place] [address] PCP - General Family Medicine 11/07/23 Shandra Mckinney MD [address] [place] [address] Referring Physician Family Medicine 10/10/23 documented as of this encounter
--- NOTE | 2025-07-08 08:51 | CT_ITS ---
[address] [address] Patient Name: DELL TRAVIS MRN: [id number] date: 1970 Sex: M Assigned Patient Location: CT Current Patient Location: CT Accession/Order Number: [id number] Exam Date: 07/08/2025 09:57 Report Date: 07/08/2025 10:58 At the request of: CHANDRIKA CHANDLER MD Procedure: CT abdomen pelvis w con CT abdomen pelvis w con 07/08/2025 10:09 AM SIGNS AND SYMPTOMS: ^Right Upper Quadrant Pain, Epigastric Pain TECHNIQUE: Multidetector ct axial images of the abdomen and pelvis were obtained with IV contrast. Multiplanar reformats were performed and reviewed to further define anatomy and possible pathology. CT was performed with one or more of the following dose reduction techniques: Automated exposure control, adjustment of the mA and/or kV according to patient size, or use of iterative reconstruction technique. COMPARISON: None. FINDINGS: Lower Chest: Within normal limits. ABDOMEN: Liver: Within normal limits. Bile Ducts: Normal caliber. Gallbladder: There is a stone in the gallbladder lumen. Pancreas: Within normal limits. Spleen: Within normal limits. Adrenals: Within normal limits. Kidneys: Simple cysts are noted in the left renal cortex requiring no further follow-up. Pelvis: Reproductive Organs: No pelvic masses. Ureters: Within normal limits. Bladder: Within normal limits. Bowel: Normal caliber. There is a normal appendix in the right lower quadrant. Mesenteric Lymph Nodes: No enlarged mesenteric lymph nodes. Peritoneum: No ascites or free air, no fluid collection. Vessels: Atherosclerotic changes are noted in the abdominal aorta and its branches. Retroperitoneum: Within normal limits. Abdominal Wall: There is a fat-containing periumbilical hernia. Bones: Degenerative changes are noted in the thoracolumbar spine, hips, and sacroiliac joints. There is a dextro convex curvature of the thoracolumbar spine. CT/CT abdomen pelvis w con IMPRESSION: There is a stone in the gallbladder lumen. No bowel obstruction or obstructive uropathy. Simple cysts are noted in the left renal cortex requiring no further follow-up. Impression dictated by: Paul Chopra M.D. 07/08/2025 10:58 AM Dictation Location: [id number]-[id number] Electronically authenticated by: [id number] Y Date: 07/08/2025 10:58
== END 2025-07-08 08:41 | disposition home or self-care (01) ==
LOC: CT 08:40
PROVIDERS: PCP Nurse Practitioner Family; Visit Provider Surgery
DX: R10.11 Right upper quadrant pain (principal); R10.13 Epigastric pain; K80.20 Calculus of gallbladder without cholecystitis without obstruction; N28.89 Other specified disorders of kidney and ureter
CPT/HCPCS: 74177; Q9967

== ENCOUNTER 2025-09-09 09:35 | Outpatient (OUT) | payer OTHER, SELFPAY ==
[2025-09-09 10:01] LABS: Hematocrit 44.8 % (42.0-54.0); Hemoglobin 14.3 g/dL (14.0-18.0); Immature Granulocytes Abs Auto 0.06 10^3/uL (0.00-0.03); Immature Granulocytes Pct Auto 1.0 % (0.0-0.5); Lymphocytes Absolute Auto 1.5 10^3/uL (1.2-3.8); Mean Corpuscular HGB Conc 31.9 g/dL (29.9-35.2); Mean Corpuscular Hemoglobin 30.6 pg (25.9-34.0); Mean Corpuscular Volume 95.9 fL (80.0-94.0); Platelet Count 275 10^3/uL (150-450); Red Blood Count 4.67 10^6/uL (4.70-6.10); White Blood Count 6.2 10^3/uL (4.0-11.0)
[2025-09-09 10:50] LABS: Alanine Aminotransferase 32 U/L (16-63); Albumin Globulin Ratio 1.1; Albumin Level 3.6 g/dL (3.4-5.0); Alkaline Phosphatase 60 U/L (46-116); Anion Gap 11.5; Aspartate Amino Transferase 24 U/L (15-37); Blood Urea Nitrogen 10.0 mg/dL (7.0-18.0); Calcium 8.4 mg/dL (8.5-10.1); Carbon Dioxide 26.8 mmol/L (21.0-32.0); Chloride 108 mmol/L (98-107); Cholesterol 185 mg/dL (<=200); Estimated GFR (African America >60 (>=60 mL/min/1.73m^2); Estimated GFR (Non-African Ame >60 (>=60 mL/min/1.73m^2); Free T3 2.75 pg/mL (2.18-3.98); Globulin 3.4 g/dL; Glucose 114 mg/dL (74-106); HDL Cholesterol 54 mg/dL (40-60); Potassium 4.3 mmol/L (3.5-5.1); Sodium 142 mmol/L (136-145); Thyroid Stimulating Hormone 1.332 uIU/mL (0.358-3.740); Total Protein 7.0 g/dL (6.4-8.2); Triglycerides 37 mg/dL (<=150); Uric Acid 6.9 mg/dL (3.5-7.2); VLDL CHOLESTEROL 7.4 mg/dL
== END 2025-09-09 09:36 | disposition home or self-care (01) ==
LOC: LAB 09:38
PROVIDERS: PCP Nurse Practitioner Family; Visit Provider Nurse Practitioner Family
DX: Z00.00 Encounter for general adult medical examination without abnormal findings (principal); Z12.5 Encounter for screening for malignant neoplasm of prostate
CPT/HCPCS: 36415; 80053; 80061; 83036; 83525; 84436; 84443; 84481; 84550; 85025; G0103